=== PATIENT | female | born 1945 | race Caucasian/White ===

== ENCOUNTER 2023-09-19 08:46 | Day surgery (SDC) | payer OTHER ==
[~2023-09-19] VITALS: Ht 162.6 cm; Wt 90.7 kg
[~2023-09-19 08:46] MED LIST: ceFAZolin SODIUM 2 GM in D5W 100 ML IV ONE
[2023-09-19] MEDS ORDERED: ACETAMINOPHEN I.V. 1000 MG /100 ML IVPB PREMIX IV ONE (08:47)
[2023-09-19 11:18] VITALS: O2SAT 96
[2023-09-19] MEDS ORDERED: LIDOCAINE 2%, 20 ML MDV ONE (11:34)
[2023-09-19] MEDS ORDERED: ONDANSETRON HCL 4 MG/2 ML VIAL ONE (11:34)
[2023-09-19] MEDS ORDERED: ISOFLURANE 15 MIN GAS INH ONE (11:34)
[2023-09-19] MEDS ORDERED: SUGAMMADEX SODIUM 200 MG/2 ML VIAL IV ONE (11:34)
[2023-09-19] MEDS ORDERED: DEXAMETHASONE SOD PHOSPHATE 4 MG/ML VIAL ONE (11:34)
[2023-09-19] MEDS ORDERED: PROPOFOL 200MG/ 20ML VIAL (DIPRIVAN) IV ONE (11:34)
[2023-09-19] MEDS ORDERED: NS 250 ML BAG IV ONE (11:34)
[2023-09-19] MEDS ORDERED: fentaNYL CITRATE/PF 100 MCG/2 ML AMP ONE (11:34)
[2023-09-19] MEDS ORDERED: BUPIVACAINE /PF 0.25% 30 ML VIAL INJ ONE (11:34)
[2023-09-19] MEDS ORDERED: MIDAZOLAM HCL/PF 2 MG/2 ML SYRINGE ONE (11:34)
[2023-09-19] MEDS ORDERED: ROCURONIUM BROMIDE 10 MG/ML (ZEMURON) ONE (11:34)
[2023-09-19] MEDS ORDERED: NS IRRIG SOLN 1000 ML IR ONE (11:34)
[2023-09-19] MEDS ORDERED: hydrALAZINE HCL 20 MG/ML VIAL IVP PRN (12:30)
[2023-09-19] MEDS ORDERED: LR 1,000 ML IV SCH (12:30)
[2023-09-19] MEDS ORDERED: LABETALOL 100 MG/ 20ML VIAL IVP PRN (12:30)
[2023-09-19] MEDS ORDERED: HYDROmorphone 1 MG/ML INJ. CARTRIDGE IVP PRN ×2 (12:30)
[2023-09-19] MEDS ORDERED: METOCLOPRAMIDE HCL 10 MG/2 ML VIAL IVP PRN (12:30)
[2023-09-19] MEDS ORDERED: HYDROcodone/ACETAMIN 5-325 MG TAB (NORCO/ VICODIN) PO PRN (13:00)
[2023-09-19] MEDS ORDERED: D5/0.45 NS 1,000 ML IV SCH (13:00)
[2023-09-19] MEDS: MEPERIDINE HCL/PF 25 MG/ML DISP.SYRIN IVP PRN ×2 (13:20→13:35)
[2023-09-19] MEDS ORDERED: HYDROmorphone 1 MG/ML INJ. CARTRIDGE ONE (14:21)
[2023-09-19 17:25] VITALS: BP_SYST 130; PULSE 66; RESP 17
== END 2023-09-19 17:00 | disposition home or self-care (01) ==
LOC: SDS 08:46 → SMU 08:47 → SDS 17:00
PROVIDERS: ATTEND Colon & Rectal Surgery
DX: K80.10 Calculus of gallbladder with chronic cholecystitis without obstruction (principal); I12.9 Hypertensive chronic kidney disease with stage 1 through stage 4 chronic kidney disease, or unspecified chronic kidney disease; N18.30 Chronic kidney disease, stage 3 unspecified; E78.5 Hyperlipidemia, unspecified; G47.33 Obstructive sleep apnea (adult) (pediatric); F41.9 Anxiety disorder, unspecified; K21.9 Gastro-esophageal reflux disease without esophagitis; E03.9 Hypothyroidism, unspecified; E66.01 Morbid (severe) obesity due to excess calories; M85.80 Other specified disorders of bone density and structure, unspecified site; Z68.35 Body mass index [BMI] 35.0-35.9, adult; Z99.89 Dependence on other enabling machines and devices; Z79.82 Long term (current) use of aspirin; Z79.899 Other long term (current) drug therapy
CPT/HCPCS: 87081; 47563; 88304; J3490 ×2; J1100; J3465; J2405; J2704; J3010; J1170; Q9967; J7060; J7050; C1727; J0131; 76000; J2001